=== PATIENT | male | born 1995 | race Hispanic/Latino ===

== ENCOUNTER 2018-01-09 22:19 | Emergency (ER) | payer OTHER ==
[2018-01-09 22:36] VITALS: TEMP 97.4
--- NOTE | 2018-01-09 22:52 | ED PDOC ---
HPI: Dental Pain/Injury Time Seen by Provider: 01/09/18 22:50 Chief Complaint (Nursing): Dental Pain Chief Complaint (Provider): dental injury History Per: Patient (22 y/o male here with right posterior molar discomfort with eating. Denies any fevers/chills. No vomiting/diarrhea.) Past Medical History Reviewed: Historical Data, Nursing Documentation, Vital Signs Vital Signs: Last Vital Signs Temp 97.4 F L 01/09/18 22:35 Pulse 77 01/09/18 22:35 Resp 18 01/09/18 22:35 BP 142/92 H 01/09/18 22:33 Pulse Ox 100 01/09/18 22:35 - Family History Family History: States: No Known Family Hx - Home Medications Home Medications: Ambulatory Orders Medication Instructions Recorded Ibuprofen [Motrin] 600 mg PO Q8 PRN #21 tab 01/09/18 Penicillin VK [Penicillin VK Tab] 1 tab PO QID #40 tab 01/09/18 - Allergies Allergies/Adverse Reactions: Allergies Allergy/AdvReac Type Severity Reaction Status Date / Time No Known Allergies Allergy Verified 01/09/18 22:33 Review of Systems ROS Statement: Except As Marked, All Systems Reviewed And Found Negative Physical Exam - Reviewed Nursing Documentation Reviewed: Yes Vital Signs Reviewed: Yes - Physical Exam Appears: Positive for: Well, Non-toxic, No Acute Distress Head Exam: Positive for: ATRAUMATIC, NORMAL INSPECTION, NORMOCEPHALIC Skin: Positive for: Normal Color, Warm, DRY Eye Exam: Positive for: EOMI, Normal appearance, PERRL ENT: Positive for: Other (right mandibular tenderness posterior molar. No abscess. Minimal gingival irritation.). Negative for: Normal ENT Inspection Neck: Positive for: Normal, Painless ROM Cardiovascular/Chest: Positive for: Regular Rate, Rhythm Respiratory: Positive for: CNT, Normal Breath Sounds Gastrointestinal/Abdominal: Positive for: Normal Exam, Soft Back: Positive for: Normal Inspection Extremity: Positive for: Normal ROM Neurologic/Psych: Positive for: Alert, Oriented - ECG O2 Sat by Pulse Oximetry: 100 Disposition - Clinical Impression Clinical Impression: Pain, dental - Patient ED Disposition Is Patient to be Admitted: No - Disposition Disposition: Routine/Home Disposition Time: 22:53 Condition: FAIR Prescriptions: Ibuprofen [Motrin] 600 mg PO Q8 PRN #21 tab PRN Reason: Pain, Moderate (4-7) Penicillin VK [Penicillin VK Tab] 1 tab PO QID #40 tab Instructions: Dental Pain (DC)
[2018-01-09 23:01] VITALS: BP 139/85; PULSE 81; RESP 17; O2SAT 99
== END 2018-01-09 23:01 | disposition home or self-care (01) ==
LOC: H.ER 22:19
DX: K08.89 Other specified disorders of teeth and supporting structures (principal)